=== PATIENT | female | born 1935 | race Caucasian/White ===

== ENCOUNTER 2017-07-22 10:38 | Emergency (ER) | payer MEDICARE, MEDICAID ==
[2017-07-22 12:04] LABS: ABS Basophils 0.1 10^3/ul (0-0.2); ABS Eosinophils 0.2 10^3/ul (0-0.6); ABS Lymphocytes 2.9 10^3/ul (1.0-4.8); ABS Monocytes 0.5 10^3/ul (0-0.8); ABS Neutrophils 3.9 10^3/ul (1.5-7.7); ABS Nucleated RBC 0 10^3/ul; Eosinophil % 2.3 % (0-6); Hematocrit 42 % (35-47); Hemoglobin 13.6 g/dl (12.0-16.0); Lymphocyte % 38.5 % (25-47); Mean Corpuscular HGB Conc 32 g/dl (31-36); Mean Corpuscular Hemoglobin 28 pg (27-31); Mean Corpuscular Volume 86 fL (80-97); Mean Platelet Volume 9 um3 (7.4-10.4); Nucleated Red Blood Cells % 0.1; Platelet Count 375 10^3/ul (150-450); Red Cell Distribution Width 16 % (10.5-15); White Blood Count 7.6 10^3/ul (3.5-10.8)
[2017-07-22 12:22] LABS: EGFR Non-African American 59.8 (>60)
[2017-07-22] MEDS ORDERED: LORazepam INJ* 2 MG/ML 1 ML VIAL IV ONE (12:28)
[2017-07-22] MEDS ORDERED: Ketorolac INJ* 30 MG/ML 1 ML VIAL IV ONE (12:28)
[2017-07-22 12:29] LABS: Urine Appearance Cloudy; Urine Blood 3+ (Negative); Urine Color Yellow; Urine Ketones Negative (Negative); Urine Protein 1+(30 mg/dL) (Negative); Urine Specific Gravity 1.018 (1.010-1.030); Urine Urobilinogen Negative (Negative)
--- NOTE | 2017-07-22 13:23 | RAD ---
Indication: Left flank pain. CT of the abdomen and pelvis was performed without oral or IV contrast administration. Coronal and sagittal reconstructed images were obtained. Lung bases demonstrate no pleural fluid, nodules or masses. Heart is of normal size without evidence of pericardial effusion. Liver is normal in size. No focal lesions or intrahepatic ductal dilatation is noted. The patient status post cholecystectomy. Pancreas demonstrates no mass or pancreatic ductal dilatation. Spleen is normal in size. No adrenal lesions are noted. The kidneys demonstrates no hydronephrosis in either kidney although there is calculi in the upper pole of the left kidney. There is fullness of left renal pelvis and the possibility of UPJ obstruction of the left kidney should be considered. Calculi in the left kidney measures up to 9.6 mm. Large left renal cyst measuring up to 7 cm is noted. Atherosclerotic aorta is noted. No dilated loops of bowel are noted. A large duodenal diverticulum is noted. No retroperitoneal adenopathy is noted. Diverticulosis without definite evidence of diverticulitis is noted. IMPRESSION: Large left renal cyst. Fullness of the left renal pelvis with no evidence of hydroureter. Left-sided UPJ obstruction should be considered. No definite ureteral calculi is definitively identified. 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
--- NOTE | 2017-07-22 13:28 | RAD ---
Indication: Left flank pain. CT of the lumbar spine was obtained in the axial plane. Sagittal and coronal reconstructed images were obtained. There is compression fracture of the L1 vertebra. Age of this is undetermined. There is progression since previous exam of October 09, 2015 with approximately 50% compression currently. Osteopenia is noted in the remainder of the lumbar spine. No retropulsed fragment is noted. IMPRESSION: 50% compression of L1. It has progressed since previous exam of October 09, 2015.. Diffuse osteopenia is noted.
[2017-07-22 15:05] VITALS: BP 164/67
--- NOTE | 2017-07-22 16:49 | ED ---
C[place] Martin Jennifer, scribed for Skip Ny MD on 07/22/17 at 1210 . GI/ HPI - HPI Summary HPI Summary: The patient is an 81 year old who was sent to the ED by her PCP with left flank pain that has worsened two-three days ago. The patient explains that she broke her back around the same time the flank pain began. She was taking Oxycodone since October 2016 for her back pain, but stopped taking it two-three days ago when her back pain went away. The patient describes that she only has flank pain now that feels similar to her two previous episodes of kidney stones. The patient denies problems with urinating. She reports that movement aggravates the pain. - History of Current Complaint Chief Complaint: EDFlankPain Time Seen by Provider: 07/22/17 12:02 Stated Complaint: POSSIBLE KINDEY STONES Hx Obtained From: Patient Onset/Duration: Started Days Ago - 2-3 days, Still Present Timing: Constant Severity: Moderate Current Severity: Moderate Pain Intensity: 4 Location of Pain: Flank - Left Associated Signs and Symptoms: Positive: Other: - Back pain. DENIES: problems with urinating Aggravating Factor(s): Movement Alleviating Factor(s): Rest - Allergy/Home Medications Allergies/Adverse Reactions: Allergies Allergy/AdvReac Type Severity Reaction Status Date / Time MS Morphine [Morphine] Allergy Nausea Verified 07/22/17 12:42 PMH/Surg Hx/FS Hx/Imm Hx Endocrine/Hematology History: Reports: Hx Anticoagulant Therapy, Hx Diabetes - borderline, Hx Anemia - as child Denies: Hx Systemic Lupus Erythematosus, Hx Thyroid Disease Cardiovascular History: Reports: Hx Atrial Fibrillation - on prodaxa, Hx Hypercholesterolemia, Hx Hypertension, Hx Peripheral Vascular Disease, Other Cardiovascular Problems/Disorders - hx AFIB Denies: Hx Pacemaker/ICD Respiratory History: Denies: Hx Asthma, Hx Seasonal Allergies, Hx Sleep Apnea GI History: Reports: Hx Gall Bladder Disease - choleycystectomy Denies: Hx Diverticulosis, Hx Gastroesophageal Reflux Disease, Hx Hiatal Hernia, Hx Irritable Bowel, Hx Ulcer History: Reports: Hx Kidney Stones, Other Problems/Disorders - urinary urgency Musculoskeletal History: Reports: Hx Arthritis Sensory History: Reports: Hx Cataracts - removed approx 2005, Hx Contacts or Glasses, Hx Glaucoma, Hx Vision Problem, 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 hysterectomy. appendenctomy. choleycystectomy. cataracts Hx Anesthesia Reactions: No Infectious Disease History: No Infectious Disease History: Denies: Traveled Outside the [place] in Last 30 Days - Family History Known Family History: Positive: Diabetes - Social History Alcohol Use: None Hx Substance Use: No Substance Use Type: Reports: None Hx Tobacco Use: No Smoking Status (MU): Never Smoked Tobacco Review of Systems Negative: Fever Positive: flank pain Positive: Other - Back pain All Other Systems Reviewed And Are Negative: Yes Physical Exam - Summary Physical Exam Summary: Appearance: The patient is well-nourished in no acute distress and in no acute pain. Skin: The skin is warm and dry and skin color reflects adequate perfusion. HEENT: ~The head is normocephalic and atraumatic. The pupils are equal and reactive. The conjunctivae are clear and without drainage. ~Nares are patent and without drainage. ~Mouth reveals moist mucous membranes and the throat is without erythema and exudate. ~The external ears are intact. The ear canals are patent and without drainage. The tympanic membranes are intact. Neck: the neck is supple with full range of motion and non-tender. There are no carotid bruits. ~There is no neck vein distension. Respiratory: Chest is non-tender. ~Lungs are clear to auscultation and breath sounds are symmetrical and equal. Cardiovascular: Heart is regular rate and rhythm. ~There is no murmur or rub auscultated. ~~There is no peripheral edema and pulses are symmetrical and equal. Abdomen: There is very slight CVA tenderness on the left. ~There are normal bowel sounds heard in all four quadrants and there is no organomegaly palpated. Musculoskeletal: There is tenderness in the mid-back. ~Extremities are non- tender with full range of motion. ~There is good capillary refill. ~There is no peripheral edema or calf tenderness elicited. Neurological: Patient is alert and oriented to person, place and time. Positive straight let raise on both sides. ~The patient has symmetrical motor strength in all four extremities. ~Cranial nerves are grossly intact. Deep tendon reflexes are symmetrical and equal in all four extremities. Psychiatric: The patient has an appropriate affect and does not exhibit any anxiety or depression. Triage Information Reviewed: Yes Vital Signs On Initial Exam: Initial Vitals Temp Pulse Resp BP Pulse Ox 97.9 F 74 19 136/85 100 07/22/17 10:45 07/22/17 10:45 07/22/17 10:45 07/22/17 10:45 07/22/17 10:45 Vital Signs Reviewed: Yes Diagnostics - Vital Signs Vital Signs Temp Pulse Resp BP Pulse Ox 07/22/17 10:45 97.9 F 74 19 136/85 100 - Laboratory Lab Results: Lab Results 07/22/17 07/22/17 07/22/17 Range/Units 11:40 11:40 11:40 WBC 7.6 (3.5-10.8) 10^3/ul RBC 4.90 (4.0-5.4) 10^6/ul Hgb 13.6 (12.0-16.0) g/dl Hct 42 (35-47) % MCV 86 (80-97) fL MCH 28 (27-31) pg MCHC 32 (31-36) g/dl RDW 16 H (10.5-15) % Plt Count 375 (150-450) 10^3/ul MPV 9 (7.4-10.4) um3 Neut % (Auto) 51.9 (38-83) % Lymph % (Auto) 38.5 (25-47) % [place] % (Auto) 6.0 (1-9) % Eos % (Auto) 2.3 (0-6) % Baso % (Auto) 1.3 (0-2) % Absolute Neuts (auto) 3.9 (1.5-7.7) 10^3/ul Absolute Lymphs (auto) 2.9 (1.0-4.8) 10^3/ul Absolute Monos (auto) 0.5 (0-0.8) 10^3/ul Absolute Eos (auto) 0.2 (0-0.6) 10^3/ul Absolute Basos (auto) 0.1 (0-0.2) 10^3/ul Absolute Nucleated RBC 0 10^3/ul Nucleated RBC % 0.1 Sodium 137 (133-145) mmol/L Potassium TNP Chloride 104 (101-111) mmol/L Carbon Dioxide 27 (22-32) mmol/L Anion Gap 6 (2-11) mmol/L BUN 17 (6-24) mg/dL Creatinine 0.90 (0.51-0.95) mg/dL Est GFR ( Amer) 76.9 (>60) Est GFR (Non-Af Amer) 59.8 (>60) BUN/Creatinine Ratio 18.9 (8-20) Glucose 102 H (70-100) mg/dL Lactic Acid 1.6 (0.5-2.0) mmol/L Calcium 9.6 (8.6-10.3) mg/dL Total Bilirubin 0.40 (0.2-1.0) mg/dL AST TNP ALT 16 (7-52) U/L Alkaline Phosphatase 83 (34-104) U/L C-Reactive Protein 1.48 (< 5.00) mg/L Total Protein 7.2 (6.4-8.9) g/dL Albumin 3.8 (3.2-5.2) g/dL Globulin 3.4 (2-4) g/dL Albumin/Globulin Ratio 1.1 (1-3) Lipase 36 (11.0-82.0) U/L Urine Color Urine Appearance Urine pH (5-9) Ur Specific [place] (1.010-1.030) Urine Protein (Negative) Urine Ketones (Negative) Urine Blood (Negative) Urine Nitrate (Negative) Urine Bilirubin (Negative) Urine Urobilinogen (Negative) Ur Leukocyte Esterase (Negative) Urine WBC (Auto) (Absent) Urine RBC (Auto) (Absent) Ur Squamous Epith Cells (Absent) Calcium Oxalate Crystal (Absent) Urine Bacteria (Absent) Urine Glucose (Negative) 07/22/17 Range/Units 12:03 WBC (3.5-10.8) 10^3/ul RBC (4.0-5.4) 10^6/ul Hgb (12.0-16.0) g/dl Hct (35-47) % MCV (80-97) fL MCH (27-31) pg MCHC (31-36) g/dl RDW (10.5-15) % Plt Count (150-450) 10^3/ul MPV (7.4-10.4) um3 Neut % (Auto) (38-83) % Lymph % (Auto) (25-47) % [place] % (Auto) (1-9) % Eos % (Auto) (0-6) % Baso % (Auto) (0-2) % Absolute Neuts (auto) (1.5-7.7) 10^3/ul Absolute Lymphs (auto) (1.0-4.8) 10^3/ul Absolute Monos (auto) (0-0.8) 10^3/ul Absolute Eos (auto) (0-0.6) 10^3/ul Absolute Basos (auto) (0-0.2) 10^3/ul Absolute Nucleated RBC 10^3/ul Nucleated RBC % Sodium (133-145) mmol/L Potassium Chloride (101-111) mmol/L Carbon Dioxide (22-32) mmol/L Anion Gap (2-11) mmol/L BUN (6-24) mg/dL Creatinine (0.51-0.95) mg/dL Est GFR ( Amer) (>60) Est GFR (Non-Af Amer) (>60) BUN/Creatinine Ratio (8-20) Glucose (70-100) mg/dL Lactic Acid (0.5-2.0) mmol/L Calcium (8.6-10.3) mg/dL Total Bilirubin (0.2-1.0) mg/dL AST ALT (7-52) U/L Alkaline Phosphatase (34-104) U/L C-Reactive Protein (< 5.00) mg/L Total Protein (6.4-8.9) g/dL Albumin (3.2-5.2) g/dL Globulin (2-4) g/dL Albumin/Globulin Ratio (1-3) Lipase (11.0-82.0) U/L Urine Color Yellow Urine Appearance Cloudy Urine pH 5.0 (5-9) Ur Specific [place] 1.018 (1.010-1.030) Urine Protein 1+(30 mg/dl) H (Negative) Urine Ketones Negative (Negative) Urine Blood 3+ H (Negative) Urine Nitrate Negative (Negative) Urine Bilirubin Negative (Negative) Urine Urobilinogen Negative (Negative) Ur Leukocyte Esterase 1+ H (Negative) Urine WBC (Auto) 1+(6-10/hpf) H (Absent) Urine RBC (Auto) 3+(>10/hpf) H (Absent) Ur Squamous Epith Cells Present H (Absent) Calcium Oxalate Crystal Present H (Absent) Urine Bacteria Absent (Absent) Urine Glucose Negative (Negative) Result Diagrams: 07/22/17 11:40 07/22/17 11:40 Lab Statement: Any lab studies that have been ordered have been reviewed, and results considered in the medical decision making process. - CT CT Abd/Pel CT Interpretation: Positive (See Comments) - Large left renal cyst. Fullness of the left renal pelvis with no evidence of hydroureter. Left-sided UPJ obstruction should be considered. No definite ureteral calculi is definitively identified. 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 Dr. Ny has reviewed this report. CT Interpretation Completed By: Radiologist CT L-Spine CT Interpretation: Positive (See Comments) - 50% compression of L1. It has progressed since previous exam of October 09, 2015.. Diffuse osteopenia is noted. Dr. Ny has reviewed this report. CT Interpretation Completed By: Radiologist GIGU Course/Dx - Course Course Of Treatment: Ms. Bradford presented with the concern that she had another kidney stone. She has left flank pain that she isn't able to say when it started as she has a compression fracture in her back and has been taking narcotics for the last 8 months or so for. No stone was found here but her compression fracture of L1 was noted to be worse than before and this is likely the cause of her discomfort. - Diagnoses Provider Diagnoses: Lumbar radiculopathy Discharge - Discharge Plan Condition: Stable Disposition: HOME Patient Education Materials: Lumbar Radiculopathy (ED) Referrals: Fazal Ramsey DO [Doctor of Osteopathy] - 3 Days Additional Instructions: Follow up with Dr. Ramsey, medical pain production support consultant, in three days. Return to the emergency department for any new or worsening symptoms. The documentation as recorded by the Cleveland polanco Jennifer accurately reflects the service I personally performed and the decisions made by , Skip Ny MD.
== END 2017-07-22 15:04 | disposition home or self-care (01) ==
LOC: ED 10:38
DX: M54.16 Radiculopathy, lumbar region (principal); R10.84 Generalized abdominal pain; M54.9 Dorsalgia, unspecified; Z79.01 Long term (current) use of anticoagulants; Z86.79 Personal history of other diseases of the circulatory system
CPT/HCPCS: 36415; 72131; 74176; 80053; 81003; 81015; 83605; 83690; 85025; 86140; 87077; 87086; 87186; 99282; J1885; J2060

== ENCOUNTER 2019-01-14 08:49 | Observation (INO) | payer MEDICARE, MEDICAID ==
--- OUTSIDE RECORDS SUMMARY | 2019-01-14 09:12 | XMS REPORT | Continuity of Care Document ---
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 [facility] [address] Expires: 2018 Policy Number: [id number] Medicare [place] June M Slater PayID: [id number] [address] [facility] [address] Policy Number: [id number] Medicaid [place] June M Slater PayID: [id number] [address] [place] [id number] Family History Date Family Member(s) Observation Comments Father due to NH () Mother due to Natural Causes () Children 10 Siblings 3 Grandchildren Several Social History Type Date Description Comments Sex Unknown Marital Status Occupation Retired Work Status Not Currently Working Tobacco Use Start: Unknown Never Smoked Cigarettes Smoking Status Reviewed: 12/21/18 Never Smoked Cigarettes ETOH Use Denies alcohol use Tobacco Use Start: Unknown Patient has never smoked Allergies, Adverse Reactions, Alerts Active Allergies Reaction Severity Comments Date Morphine cough 07/07/2016 Vicodin forgetful 07/07/2016 Manfred Inhibitors cough 07/07/2016 Medications Active Medications SIG Qnty Indications Ordering Date Provider Oxycodone HCL si by mouth 75tabs Fazal Ramsey, 09/08/2017 5mg Tablets every 8 to 12 DO, MPH hours as directed chronic pain patient Calcium 1 by mouth daily Unknown Carbonate-Vitamin D3 [id number] Tablets Amiodarone HCL 1 by mouth daily Unknown 200mg Tablets Preservision Areds 1 by mouth twice Unknown daily Capsules Pradaxa Unknown 150mg Capsules Fludrocortisone Acetate Unknown 0.1mg Tablets Northera Up To 4 By Mouth Unknown 100mg Capsules Three Times Daily History Medications Lidocaine apply 1-2 grams to 240gm Fazal Ramsey, 09/08/2017 - 5% Cream the cervical spine DO, MPH 05/23/2018 three to four times a day Midodrine HCL bid Unknown - 10mg Tablets 09/22/2018 Milk Of Magnesia as needed for Unknown - 7.75% constipation 11/10/2017 Suspension Aspirin Ec 1 by mouth daily Unknown - 325mg Tablets DR 11/10/2017 Cyclobenzaprine HCL si by mouth Unknown - 5mg every evening as 11/10/2017 Tablets directed as directed chronic pain. Duloxetine HCL 1 by mouth every day Unknown - 60mg Caps DR 09/08/2017 Part Duloxetine HCL 1 cap by mouth every Unknown - 30mg Caps DR day 09/08/2017 Part Latanoprost 1 drop in each eye Unknown - 0.005% Solution at bedtime 11/10/2017 Pradaxa 1 by mouth twice Unknown - 150mg Capsules daily 12/10/2017 Fluoxetine HCL (PMDD) 1 by mouth every day Unknown - 20mg 11/10/2017 Capsules Acetaminophen 2 tab by mouth three Unknown - 500mg Tablets times a day 11/10/2017 Oxycodone-Acetaminophen si by mouth Unknown - every 4-6 hours as 10/07/2016 5-325mg Tablets directed chronic pain patient Duloxetine HCL 1 cap by mouth every Unknown - 30mg Caps DR morning as directed 07/07/2016 Part chronic pain patient. Mapap 2 every 8 hours Unknown - 500mg Tablets 07/07/2016 Vital Signs Date Vital Result Comment 12/21/2018 10:30am BP Systolic 130 mmHg BP Diastolic 78 mmHg Heart Rate 76 /min Respiratory Rate 20 /min Height 66 inches 5'6" Pain Level 8 Pain at this time. Pain Level With Medicine 7 on average with meds Pain Level Without Medicine 9 without meds 11/22/2018 10:11am BP Systolic 126 mmHg BP Diastolic 76 mmHg Heart Rate 78 /min Respiratory Rate 20 /min Height 66 inches 5'6" Weight 201.00 lb pt in wheelchair Pain Level 2 Pain at this time. Pain Level With Medicine 1 on average with meds Pain Level Without Medicine 9 without meds BMI (Body Mass Index) 32.4 kg/m2 10/24/2018 9:54am BP Systolic 132 mmHg BP Diastolic 82 mmHg Heart Rate 84 /min Respiratory Rate 20 /min Height 66 inches 5'6" Weight 201.00 lb Pain Level 6 Pain at this time. Pain Level With Medicine 5 on average with meds Pain Level Without Medicine 9 without meds BMI (Body Mass Index) 32.4 kg/m2 09/22/2018 10:05am BP Systolic 124 mmHg BP Diastolic 70 mmHg Heart Rate 72 /min Respiratory Rate 20 /min Height 66 inches 5'6" Weight 198.00 lb Pain Level 2 Pain at this time. Pain Level With Medicine 2 on average with meds Pain Level Without Medicine 8 03/16 without meds BMI (Body Mass Index) 32.0 kg/m2 08/23/2018 2:08pm BP Systolic 128 mmHg BP Diastolic 84 mmHg Heart Rate 86 /min Respiratory Rate 20 /min Height 66 inches 5'6" Weight 202.00 lb Pain Level 2 Pain at this time. Pain Level With Medicine 2 on average with meds Pain Level Without Medicine 10 03/16 without meds BMI (Body Mass Index) 32.6 kg/m2 07/25/2018 10:24am BP Systolic 122 mmHg BP Diastolic 74 mmHg Heart Rate 76 /min Respiratory Rate 20 /min Height 66 inches 5'6" Weight 202.00 lb Pain Level 6 Pain at this time. Pain Level With Medicine 5 on average with meds Pain Level Without Medicine 10 03/16 without meds BMI (Body Mass Index) 32.6 kg/m2 06/22/2018 10:09am BP Systolic 128 mmHg BP Diastolic 80 mmHg Heart Rate 74 /min Respiratory Rate 20 /min Height 66 inches 5'6" Weight 198.00 lb Pain Level 2 Pain at this time. Pain Level With Medicine 2 on average with meds Pain Level Without Medicine 10 03/16 without meds BMI (Body Mass Index) 32.0 kg/m2 05/23/2018 11:10am BP Systolic 128 mmHg BP Diastolic 84 mmHg Heart Rate 76 /min Respiratory Rate 20 /min Height 66 inches 5'6" Weight 198.00 lb Pain Level 8 Pain at this time. Pain Level With Medicine 8 on average with meds Pain Level Without Medicine 10 03/16 without meds BMI (Body Mass Index) 32.0 kg/m2 04/26/2018 10:52am BP Systolic 120 mmHg BP Diastolic 70 mmHg Heart Rate 72 /min Respiratory Rate 20 /min Height 66 inches 5'6" Weight 196.00 lb Pain Level 5 Pain at this time. Pain Level With Medicine 4 on average with meds Pain Level Without Medicine 03/16 without meds BMI (Body Mass Index) 31.6 kg/m2 03/23/2018 10:51am BP Systolic 126 mmHg BP Diastolic 80 mmHg Heart Rate 80 /min Respiratory Rate 20 /min Height 66 inches 5'6" Weight 192.00 lb Pain Level 3 Pain at this time. Pain Level With Medicine 2 on average with meds Pain Level Without Medicine 03/16 without meds BMI (Body Mass Index) 31.0 kg/m2 02/24/2018 9:22am BP Systolic 128 mmHg BP Diastolic 80 mmHg Heart Rate 82 /min Respiratory Rate 20 /min Height 66 inches 5'6" Weight 188.00 lb Pain Level 4 Pain at this time. Pain Level With Medicine 2 on average with meds Pain Level Without Medicine 03/16 without meds BMI (Body Mass Index) 30.3 kg/m2 01/12/2018 3:29pm BP Systolic 128 mmHg BP Diastolic 76 mmHg Heart Rate 74 /min Respiratory Rate 20 /min Height 66 inches 5'6" Weight 185.00 lb Pain Level 3 Pain at this time. Pain Level With Medicine 3 on average with meds Pain Level Without Medicine 03/16 without meds BMI (Body Mass Index) 29.9 kg/m2 12/20/2017 3:15pm BP Systolic 122 mmHg BP Diastolic 70 mmHg Heart Rate 74 /min Respiratory Rate 20 /min Height 66 inches 5'6" Weight 185.00 lb Pain Level 6 Pain at this time. Pain Level With Medicine 5 on average with meds Pain Level Without Medicine 03/16 without meds BMI (Body Mass Index) 29.9 kg/m2 12/10/2017 10:28am BP Systolic 122 mmHg BP Diastolic 74 mmHg Heart Rate 76 /min Respiratory Rate 20 /min Height 66 inches 5'6" Weight 184.00 lb Pain Level 8 Pain at this time. Pain Level With Medicine 7 on average with meds Pain Level Without Medicine 03/16 without meds BMI (Body Mass Index) 29.7 kg/m2 11/09/2017 9:12am BP Systolic 120 mmHg BP Diastolic 74 mmHg Heart Rate 76 /min Respiratory Rate 20 /min Height 66 inches 5'6" Weight 193.00 lb Pain Level 7 Pain at this time. Pain Level With Medicine 5 on average with meds Pain Level Without Medicine 03/16 without meds BMI (Body Mass Index) 31.1 kg/m2 10/07/2017 11:12am BP Systolic 128 mmHg BP Diastolic 78 mmHg Heart Rate 74 /min Respiratory Rate 20 /min Height 66 inches 5'6" Weight 193.00 lb Pain Level 3 Pain at this time. Pain Level With Medicine 2 on average with meds Pain Level Without Medicine 03/16 without meds BMI (Body Mass Index) 31.1 kg/m2 09/08/2017 1:55pm BP Systolic 126 mmHg BP Diastolic 84 mmHg Heart Rate 80 /min Respiratory Rate 20 /min Height 66 inches 5'6" Weight 192.00 lb Pain Level 9 Pain at this time. Pain Level Without Medicine 03/16 without meds BMI (Body Mass Index) 31.0 kg/m2 05/11/2017 10:23am BP Systolic 128 mmHg BP Diastolic 76 mmHg Heart Rate 78 /min Respiratory Rate 20 /min Height 66 inches 5'6" Weight 192.00 lb Pain Level 1 Pain at this time. Pain Level With Medicine 1 on average with meds Pain Level Without Medicine 03/16 without meds BMI (Body Mass Index) 31.0 kg/m2 04/07/2017 11:50am BP Systolic 120 mmHg BP Diastolic 70 mmHg Heart Rate 72 /min Respiratory Rate 20 /min Height 66 inches 5'6" Weight 190.00 lb pt in wheelchiar Pain Level 6 Pain at this time. Pain Level With Medicine 5 on average with meds Pain Level Without Medicine 03/16 without meds BMI (Body Mass Index) 30.7 kg/m2 03/12/2017 11:04am BP Systolic 122 mmHg BP Diastolic 74 mmHg Heart Rate 76 /min Respiratory Rate 20 /min Height 66 inches 5'6" Pain Level 4 Pain at this time. Pain Level With Medicine 4 on average with meds Pain Level Without Medicine 10 03/16 without meds 02/10/2017 10:00am BP Systolic 120 mmHg BP Diastolic 78 mmHg Heart Rate 76 /min Respiratory Rate 20 /min Height 66 inches 5'6" Weight 186.00 lb Pain Level 4 Pain at this time. Pain Level With Medicine 3 on average with meds Pain Level Without Medicine 03/16 without meds BMI (Body Mass Index) 30.0 kg/m2 01/11/2017 2:50pm BP Systolic 128 mmHg BP Diastolic 76 mmHg Heart Rate 74 /min Respiratory Rate 20 /min Height 66 inches 5'6" Weight 185.00 lb Pain Level 4 Pain at this time. Pain Level With Medicine 4 on average with meds Pain Level Without Medicine 03/16 without meds BMI (Body Mass Index) 29.9 kg/m2 11/30/2016 10:26am BP Systolic 122 mmHg BP Diastolic 70 mmHg Heart Rate 74 /min Respiratory Rate 20 /min Height 66 inches 5'6" Weight 185.00 lb Pain Level 8 Pain at this time. Pain Level With Medicine 7 on average with meds Pain Level Without Medicine 03/16 without meds BMI (Body Mass Index) 29.9 kg/m2 11/06/2016 10:25am BP Systolic 122 mmHg BP Diastolic 74 mmHg Heart Rate 76 /min Respiratory Rate 18 /min Height 66 inches 5'6" Weight 185.00 lb Pain Level 8 Pain at this time. Pain Level With Medicine 7 on average with meds Pain Level Without Medicine 03/16 without meds BMI (Body Mass Index) 29.9 kg/m2 10/07/2016 10:02am BP Systolic 130 mmHg BP Diastolic 78 mmHg Heart Rate 74 /min Respiratory Rate 18 /min Height 66 inches 5'6" Weight 186.00 lb Pain Level 9 Pain at this time. Pain Level With Medicine 6 on average with meds Pain Level Without Medicine 10 03/16 without meds BMI (Body Mass Index) 30.0 kg/m2 07/21/2016 11:23am BP Systolic 132 mmHg BP Diastolic 84 mmHg Heart Rate 94 /min Respiratory Rate 18 /min Height 66 inches 5'6" Weight 210.00 lb O2 % BldC Oximetry 96 % Pain Level 8 Pain at this time. Pain Level With Medicine 8 Pain Level Without Medicine 10 03/16 without meds BMI (Body Mass Index) 33.9 kg/m2 07/07/2016 9:41am BP Systolic 118 mmHg BP Diastolic 80 mmHg Heart Rate 68 /min Respiratory Rate 18 /min Height 66 inches 5'6" Weight 200.00 lb Pain Level 9 Pain at this time. Pain Level Without Medicine 10 03/16 without meds BMI (Body Mass Index) 32.3 kg/m2 Procedures Date Code Description Status 07/25/2018 70727 Brief Emotional/Behav Assessment W/ Scoring Doc Per Completed Standard Inst 05/23/2018 23931 Therapeutic, Prophylactic Or Diagnostic Injection Subq/Im Completed 07/21/2016 65461 Test Autonomic Nervous System, Sudomotor Completed Encounters Type Date Location Provider Dx Diagnosis Office Visit 11/22/2018 Main Office as Of Fazal Ramsey DO [id number] Other chronic pain 10:00a 07/08/13 MPH M54.5 Low back pain M54.2 Cervicalgia Z79.891 manager long term care (current) use of opiate analgesic Office Visit 10/24/2018 10:00a Main Office as Fazal Ramsey G89.29 Other chronic Of 07/08/13 DO, MPH pain M54.2 Cervicalgia M54.5 Low back pain Z79.891 intermediate (current) use of opiate analgesic Office Visit 09/22/2018 10:00a Main Office as Fazal Ramsey G89.29 Other chronic Of 07/08/13 DO, MPH pain M54.2 Cervicalgia M54.5 Low back pain Z79.891 intermediate (current) use of opiate analgesic Office Visit 08/23/2018 2:00p Main Office as Fazal Ramsey G89.29 Other chronic Of 07/08/13 DO, MPH pain M54.5 Low back pain M54.2 Cervicalgia Z79.891 intermediate (current) use of opiate analgesic Office Visit 07/25/2018 10:15a Main Office as Fazal Ramsey G89.29 Other chronic Of 07/08/13 DO, MPH pain M54.5 Low back pain M54.2 Cervicalgia Z13.31 Encounter for screening for depression Z79.891 manager long term care (current) use of opiate analgesic Office Visit 06/22/2018 9:45a Main Office as Fazal Ramsey, G89.29 Other chronic Of 07/08/13 DO, MPH pain M54.5 Low back pain M54.2 Cervicalgia M25.512 Pain in left shoulder I48.2 Chronic atrial fibrillation F33.8 Other recurrent depressive disorders Z79.891 intermediate (current) use of opiate analgesic Office Visit 05/23/2018 11:45a Main Office as Fazal Ramsey G89.29 Other chronic Of 07/08/13 DO, MPH pain M25.512 Pain in left shoulder M54.5 Low back pain M54.2 Cervicalgia Z79.891 manager long term care (current) use of opiate analgesic R53.83 Other fatigue Office Visit 04/26/2018 11:00a Main Office as Fazal Ramsey G89.29 Other chronic Of 07/08/13 DO, MPH pain M54.2 Cervicalgia M25.512 Pain in left shoulder M54.5 Low back pain Z79.891 manager long term care (current) use of opiate analgesic Office Visit 03/23/2018 11:00a Main Office as Fazal Ramsey G89.29 Other chronic Of 07/08/13 DO, MPH pain M54.5 Low back pain M54.2 Cervicalgia M25.512 Pain in left shoulder Z79.891 intermediate (current) use of opiate analgesic Office Visit 02/24/2018 9:15a Main Office as Fazal Ramsey G89.29 Other chronic Of 07/08/13 DO, MPH pain M54.5 Low back pain M79.604 Pain in right leg M54.2 Cervicalgia M25.512 Pain in left shoulder Z79.891 manager long term care (current) use of opiate analgesic Office Visit 01/12/2018 3:15p Main Office as Fazal Ramsey G89.29 Other chronic Of 07/08/13 DO, MPH pain M54.2 Cervicalgia M79.604 Pain in right leg M54.5 Low back pain M25.512 Pain in left shoulder Z71.89 Other specified counseling Z79.891 intermediate (current) use of opiate analgesic Office Visit 12/20/2017 3:15p Main Office as Fazal Ramsey G89.29 Other chronic Of 07/08/13 DO, MPH pain M54.5 Low back pain M54.2 Cervicalgia M25.511 Pain in right shoulder M25.512 Pain in left shoulder M79.605 Pain in left leg M79.604 Pain in right leg Z71.89 Other specified counseling Z79.891 intermediate (current) use of opiate analgesic Office Visit 12/10/2017 10:15a Main Office as Fazal Ramsey G89.29 Other chronic Of 07/08/13 DO, MPH pain M54.5 Low back pain M54.2 Cervicalgia M25.512 Pain in left shoulder M25.511 Pain in right shoulder Z71.89 Other specified counseling Z79.891 intermediate (current) use of opiate analgesic Office Visit 11/09/2017 9:15a Main Office as Fazal Ramsey G89.29 Other chronic Of 07/08/13 DO, MPH pain M54.5 Low back pain M54.2 Cervicalgia M25.512 Pain in left shoulder M25.511 Pain in right shoulder Z79.891 manager long term care (current) use of opiate analgesic Office Visit 10/07/2017 11:15a Main Office as Fazal Ramsey G89.29 Other chronic Of 07/08/13 DO, MPH pain M54.5 Low back pain M54.2 Cervicalgia Z79.891 intermediate (current) use of opiate analgesic Office Visit 09/08/2017 1:45p Main Office as Fazal Ramsey G89.29 Other chronic Of 07/08/13 DO, MPH pain M54.5 Low back pain M54.2 Cervicalgia M25.512 Pain in left shoulder M25.511 Pain in right shoulder Z79.891 intermediate (current) use of opiate analgesic Z13.89 Encounter for screening for other disorder Office Visit 05/11/2017 10:30a Main Office as Fazal Ramsey G89.29 Other chronic Of 07/08/13 DO, MPH pain M54.2 Cervicalgia M54.5 Low back pain M25.512 Pain in left shoulder M25.511 Pain in right shoulder Z79.891 manager long term care (current) use of opiate analgesic Office Visit 04/07/2017 11:15a Main Office as Fazal Ramsey G89.29 Other chronic Of 07/08/13 DO, MPH pain M54.5 Low back pain M54.2 Cervicalgia M25.511 Pain in right shoulder M25.512 Pain in left shoulder M79.604 Pain in right leg M79.605 Pain in left leg Z79.891 manager long term care (current) use of opiate analgesic Office Visit 03/12/2017 11:00a Main Office as Fazal Ramsey G89.29 Other chronic Of 07/08/13 DO, MPH pain M54.5 Low back pain M54.2 Cervicalgia M25.512 Pain in left shoulder M25.511 Pain in right shoulder M79.605 Pain in left leg M79.604 Pain in right leg Z79.891 manager long term care (current) use of opiate analgesic Office Visit 02/10/2017 10:00a Main Office as Fazal Ramsey G89.29 Other chronic Of 07/08/13 DO, MPH pain M54.5 Low back pain M25.511 Pain in right shoulder M25.512 Pain in left shoulder M54.2 Cervicalgia M79.605 Pain in left leg M79.604 Pain in right leg Z79.891 intermediate (current) use of opiate analgesic Office Visit 01/11/2017 2:45p Main Office as Fazal Ramsey G89.29 Other chronic Of 07/08/13 DO, MPH pain M54.2 Cervicalgia M54.5 Low back pain M25.512 Pain in left shoulder M25.511 Pain in right shoulder M79.604 Pain in right leg M79.605 Pain in left leg Z79.891 manager long term care (current) use of opiate analgesic Office Visit 11/30/2016 10:15a Main Office as Fazal Ramsey G89.29 Other chronic Of 07/08/13 DO, MPH pain M54.5 Low back pain M54.2 Cervicalgia M25.511 Pain in right shoulder M25.512 Pain in left shoulder M79.604 Pain in right leg M79.605 Pain in left leg Z79.891 intermediate (current) use of opiate analgesic Office Visit 11/06/2016 10:30a Main Office as Fazal Ramsey G89.29 Other chronic Of 07/08/13 DO, MPH pain M54.5 Low back pain M54.2 Cervicalgia M25.511 Pain in right shoulder M25.512 Pain in left shoulder M79.604 Pain in right leg M79.605 Pain in left leg Z79.891 intermediate (current) use of opiate analgesic Office Visit 10/07/2016 9:45a Main Office as Fazal Ramsey G89.29 Other chronic Of 07/08/13 DO, MPH pain M54.5 Low back pain M54.2 Cervicalgia M25.511 Pain in right shoulder M25.512 Pain in left shoulder M79.604 Pain in right leg M79.605 Pain in left leg I48.2 Chronic atrial fibrillation Z71.89 Other specified counseling Z79.891 manager long term care (current) use of opiate analgesic Office Visit 07/21/2016 10:30a Main Office as Fazal Ramsey G89.29 Other chronic Of 07/08/13 DO, MPH pain M54.5 Low back pain M54.2 Cervicalgia M25.511 Pain in right shoulder M25.512 Pain in left shoulder M79.604 Pain in right leg M79.605 Pain in left leg I48.2 Chronic atrial fibrillation F33.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 Office Visit 07/07/2016 9:00a Main Office as Fazal Ramsey G89.29 Other chronic Of 07/08/13 DO, MPH pain M54.5 Low back pain M54.2 Cervicalgia M25.511 Pain in right shoulder M25.512 Pain in left shoulder M79.604 Pain in right leg M79.605 Pain in left leg Z71.3 Dietary counseling and surveillance Z71.89 Other specified counseling I48.2 Chronic atrial fibrillation Z79.891 intermediate (current) use of opiate analgesic F33.8 Other recurrent depressive disorders Plan of Treatment Future Appointment(s):01/20/2019 11:00 am - Fazal Ramsey DO MPH at Main Office as Of 07/08/1406 - Fazal Ramsey DO, MPHG89.29 Other chronic painComments:Chronic. Symptoms and complaints discussed and reviewed today. No significant changes in physical findings. Continue current medical pain management.M54.5 Low back painComments:Chronic. Symptoms and complaints discussed and reviewed today.No changes in physical findings. Patient is stable and comfortable when current medical therapy is rendered.Z79.891 manager long term care ( current) use of opiate analgesicNew Labs:Urine Drug Screen, Ordered: Comments:Urine drug screen sample taken today to monitor opiate use and to monitor use of illicit substances.Will discuss results at next appointment.The following tests were ordered:6 AM, AMPH, DONALDO, TAO, BUP, CARIS, COCM, COT, ETG , FENT, MCSHSG, OPI, OXY, PCP, TAPEN, XTSY, ZOLP. A urine drug test (UDT ) was ordered for this patient and collected on site today. Creatinine has been ordered as well for specimen validity, not for kidney function. Preliminary UDT results are not final and should not be used to determine patient care or plan of treatment. Initially a qualitative immunoassay screen will be done. Any inconsistent or positive findings will be further tested with a more comprehensive quantitative confirmation LCMS study. It is part of the treatment process of prescribing controlled substances and is considered standard of care.AllComments:Continue current medical pain management; injection therapy, osteopathic manipulation, PT / modalities, and consults as needed to manage chronic pain.Non - opioid pain management discussed and optionsdiscussed.Side effects discussed; anticipatory guidance given. Patient clearly understand and agree with all medical treatments and suggestions. All medicines prescribed are adequate and appropriate for this patient's complaint of pain, medical history, physical, and personal goals.Goals of Treatment are to provide adequate and appropriate multidisciplinary medical pain management to increase/ maintain patient's quality of life and functionality while maintaining satisfactory side effect profile andminimizing manager long term care end-organ damage. Importance of regular nutrition throughout the day discussed.Activity as toleratedContinue with PCP
[2019-01-14] MEDS ORDERED: NS 0.9% 1000 ML** 1,000 ML IV ONE (10:02)
[2019-01-14] MEDS ORDERED: fentaNYL* 50 MCG/ML 2 ML VIAL (100 MCG VIAL) IV SLOW PU ONE (10:03)
[2019-01-14] MEDS ORDERED: Ondansetron INJ* 2 MG/ML VIAL IV ONE (10:03)
--- NOTE | 2019-01-14 10:20 | ED ---
GI/ HPI - HPI Summary HPI Summary: The pt is an 83 yr old female presenting to [facility] c/o general weakness and N/V beginning 4 days [employer]. She states that she was vomiting before arriving to the ED and was not able to keep anything in her stomach since last night. She took an OxyContin pill last night but vomited it up and is currently in pain that she rates an 8/10. She is allergic to morphine. She mentions that most of the pain is located in her back and notes that she has several fractured vertebrae. She also reports some abd pain, chills, SOB with exertion, intermittent dizziness, inability to urinate, and feeling like a rock was on her chest but denies any fever, CP, diarrhea, or burning. She has Hx of Afib and cholecystectomy. - History of Current Complaint Chief Complaint: EDWeakness Time Seen by Provider: 01/14/19 09:38 Stated Complaint: GENERAL ILLNESS Hx Obtained From: Patient Onset/Duration: Started Days Ago, Still Present Severity: Severe Current Severity: Severe Pain Intensity: 8 Location of Pain: Diffuse, Other - pos - back pain Associated Signs and Symptoms: Positive: Dizziness - intermittent, Weakness, Nausea, Vomiting, Chills, Abdominal Pain, Other: - pos - back pain, inability to urinate, SOB with exertion, feeling of a "rock" on her chest. neg - burning. Negative: Diarrhea, Fever, Chest Pain - Allergy/Home Medications Allergies/Adverse Reactions: Allergies Allergy/AdvReac Type Severity Reaction Status Date / Time morphine Allergy Nausea Verified 01/14/19 10:23 PMH/Surg Hx/FS Hx/Imm Hx Endocrine/Hematology History: Reports: Hx Anticoagulant Therapy, Hx Diabetes - borderline, Hx Anemia - as child Denies: Hx Systemic Lupus Erythematosus, Hx Thyroid Disease Cardiovascular History: Reports: Hx Atrial Fibrillation - on prodaxa, Hx Hypercholesterolemia, Hx Hypertension, Hx Peripheral Vascular Disease, Other Cardiovascular Problems/Disorders - hx AFIB Denies: Hx Pacemaker/ICD Respiratory History: Denies: Hx Asthma, Hx Seasonal Allergies, Hx Sleep Apnea GI History: Reports: Hx Gall Bladder Disease - choleycystectomy Denies: Hx Diverticulosis, Hx Gastroesophageal Reflux Disease, Hx Hiatal Hernia, Hx Irritable Bowel, Hx Ulcer History: Reports: Hx Kidney Stones, Other Problems/Disorders - urinary urgency Musculoskeletal History: Reports: Hx Arthritis Sensory History: Reports: Hx Cataracts - removed approx 2005, Hx Contacts or Glasses, Hx Glaucoma, Hx Vision Problem, 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 hysterectomy. appendenctomy. choleycystectomy. cataracts Hx Anesthesia Reactions: No Infectious Disease History: No Infectious Disease History: Denies: Traveled Outside the [place] in Last 30 Days - Family History Known Family History: Positive: Unknown, Diabetes - Social History Alcohol Use: None Hx Substance Use: No Substance Use Type: Reports: None Substance Use Comment - Amount & Last Used: oxy Hx Tobacco Use: No Smoking Status (MU): Never Smoked Tobacco Review of Systems Positive: Chills. Negative: Fever Positive: Other - pos - feeling like a "rock" is on chest. Negative: Chest Pain Positive: Shortness Of Breath - with exertion Positive: Abdominal Pain, Vomiting, Nausea. Negative: Diarrhea Positive: other - pos - inability to urinate. Negative: burning Neurological: Other - pos - intermittent dizziness Positive: Weakness All Other Systems Reviewed And Are Negative: Yes Physical Exam - Summary Physical Exam Summary: GENERAL: Patient is a well-developed and nourished female who is lying comfortable in the stretcher. Patient is not in any acute respiratory distress. HEAD AND FACE: Normocephalic EYES: PERRLA, EOMI x 2. EARS: Hearing grossly intact. MOUTH: Oropharynx within normal limits. NECK: Supple, trachea is midline, no adenopathy, no JVD, no carotid bruit. CHEST: Symmetric, no tenderness at palpation LUNGS: Clear to auscultation bilaterally. No wheezing or crackles. CVS: Irregularly irregular rhythm, S1 and S2 present, no murmurs or gallops appreciated. ABDOMEN: Soft, non-tender. Bowel sounds are normal. No abnormal abdominal pulsations. EXTREMITIES: Full ROM in all major joints, no edema, no cyanosis or clubbing. NEURO: Alert and oriented x 3. No acute neurological deficits. Speech is normal and follows commands. SKIN: Dry and warm Triage Information Reviewed: Yes Vital Signs On Initial Exam: Initial Vitals Temp Pulse Resp BP Pulse Ox 97.7 F 101 20 112/67 93 01/14/19 08:51 01/14/19 08:51 01/14/19 08:51 01/14/19 08:51 01/14/19 08:51 Vital Signs Reviewed: Yes Diagnostics - Vital Signs Vital Signs Temp Pulse Resp BP Pulse Ox 01/14/19 10:08 91 01/14/19 09:55 111/65 01/14/19 09:00 102 95 01/14/19 08:55 101 93 01/14/19 08:51 97.7 F 101 20 112/67 93 - Laboratory Result Diagrams: 01/14/19 10:30 01/14/19 10:30 Lab Statement: Any lab studies that have been ordered have been reviewed, and results considered in the medical decision making process. - Radiology CXR Radiology Interpretation Completed By: Radiologist Summary of Radiographic Findings: IMPRESSION: #. Cardiomegaly without evidence for pulmonary edema. #. Potential obstructive lung disease. ED Physician has reviewed this report. - CT CT A/P CT Interpretation Completed By: Radiologist Summary of CT Findings: IMPRESSION: #. Hepatosteatosis. #. Post cholecystectomy. Negative for biliary dilatation. #. LEFT nephrolithiasis as described without hydronephrosis. #. Colonic diverticulosis without evidence for acute diverticulitis. ED Physician has reviewed this report. - EKG 1005 Cardiac Rate: NL - 99 bpm EKG Rhythm: Sinus Rhythm EKG Comparison: No Significant Change Summary of EKG Findings: EKG: Sinus rhythm @ 99. LAD. Prolonged Qt. No significant changes from previous EKG. GIGU Course/Dx - Course Course Of Treatment: The pt is an 83 yr old female presenting to [facility] c/o general weakness and N/V beginning 4 days [employer]. labs reviewed is remarkble for for WBC at 16.5. A CXR reveals: #. Cardiomegaly without evidence for pulmonary edema. #. Potential obstructive lung disease. A CT A/P reveals: #. Hepatosteatosis. #. Post cholecystectomy. Negative for biliary dilatation. #. LEFT nephrolithiasis as described without hydronephrosis. #. Colonic diverticulosis without evidence for acute diverticulitis. Given that UA is positive and patient is actively vomiting she will need to be admitted for IV antibiotics. Case discussed with hospitalist. Mario discussed results with patient. The patient agrees with this plan. - Diagnoses Provider Diagnoses: Pyelonephritis, Nausea & vomiting - Physician Notifications Discussed Care Of Patient With: Jasper Sanchez - pt will be admitted to [facility]. Time Discussed With Above Provider: 12:30 Instructed by Provider To: Admit As Inpatient Discharge - Sign-Out/Discharge Documenting (check all that apply): Patient Departure - Admit Patient Received Moderate/Deep Sedation with Procedure: No - Discharge Plan Condition: Stable Disposition: ADMITTED TO [facility] - Billing Disposition and Condition Condition: STABLE Disposition: Admitted to [facility] - Attestation Statements Document Initiated by Miguel Ángel: Yes Documenting Scribe: Philipp Chandler Provider For Whom Miguel Ángel is Documenting (Include Credential): Tommie Rodriguez MD Scribe Attestation: Philipp Martin, scribed for Tommie Rodriguez MD on 01/14/19 at 1711. Scribe Documentation Reviewed: Yes Provider Attestation: The documentation as recorded by the Philipp polanco accurately reflects the service I personally performed and the decisions made by , Tommie Rodriguez MD Status of Scribvalente Document: Viewed
[2019-01-14 10:35] LABS: Urine Appearance Cloudy; Urine Bacteria Absent (Absent); Urine Bilirubin Negative (Negative); Urine Blood 3+ (Negative); Urine Color Yellow; Urine Glucose Negative (Negative); Urine Ketones Negative (Negative); Urine Nitrite Negative (Negative); Urine Protein 1+(30 mg/dL) (Negative); Urine Red Blood Cell 3+(>10/hpf) (Absent); Urine Specific Gravity 1.012 (1.010-1.030); Urine Squamous Epithelial Cell Present (Absent); Urine Urobilinogen Negative (Negative); Urine White Blood Cell 3+(>20/hpf) (Absent)
[2019-01-14 10:49] LABS: ABS Basophils 0.2 10^3/ul (0-0.2); ABS Lymphocytes 2.6 10^3/ul (1.0-4.8); ABS Neutrophils 12.7 10^3/ul (1.5-7.7); Eosinophil % 0.1 %; Hematocrit 42 % (35-47); Hemoglobin 13.5 g/dL (12.0-16.0); Lymphocyte % 15.8 %; Mean Corpuscular HGB Conc 32 g/dL (31-36); Mean Corpuscular Hemoglobin 27 pg (27-31); Mean Corpuscular Volume 84 fL (80-97); Mean Platelet Volume 8.8 fL (7.4-10.4); Nucleated Red Blood Cells % 0.1; Platelet Count 354 10^3/uL (150-450); Red Blood Count 4.97 10^6 /uL (3.70-4.87); Red Cell Distribution Width 17 % (10-15); White Blood Count 16.5 10^3/uL (3.5-10.8)
[2019-01-14 11:01] LABS: INR 1.28 (0.82-1.09)
[2019-01-14] MEDS ORDERED: cefTRIAXone(*) 1 GM in NS 0.9% 50 ML* 50 ML IVPB ONE (11:03)
[2019-01-14 11:09] LABS: Troponin I 0.01 ng/mL (<0.04)
[2019-01-14 11:10] LABS: Albumin 3.6 g/dL (3.2-5.2); Albumin/Globulin Ratio 1.1 (1-3); BUN/Creatinine Ratio 16.7 (8-20); Calcium 9.2 mg/dL (8.6-10.3); EGFR Non-African American 64.4 (>60); Globulin 3.3 g/dL (2-4); Magnesium 1.7 mg/dL (1.9-2.7); Potassium 3.9 mmol/L (3.5-5.0); Total Bilirubin 0.6 mg/dL (0.2-1.0); Total Protein 6.9 g/dL (6.4-8.9)
[2019-01-14] MEDS ORDERED: Iodixanol* (CONTRAST) 320 MG/ML 100 ML SDV IV ONE (11:14)
[2019-01-14 11:21] LABS: T4, Total 11.76 mcg/dL (6.09-12.23)
[2019-01-14 11:27] LABS: TSH (Thyroid Stimulating Horm) 0.27 mcIU/mL (0.34-5.60)
[2019-01-14] MEDS ORDERED: oxyCODONE/Acetamin 5/325 MG* TAB PO PRN (13:22)
--- NOTE | 2019-01-14 13:31 | ADMNOTE ---
Subjective Date of Service: 01/14/19 Interval History: ADMISSION HISTORY AND PHYSICAL EXAM: Allergies Allergy/AdvReac Type Severity Reaction Status Date / Time morphine Allergy Nausea Verified 01/14/19 10:23 MS Morphine [Morphine] Allergy Nausea Verified 07/22/17 12:42 Home Medications Medication Instructions Recorded Confirmed Type Dabigatran CAP(NF) [Pradaxa 150 mg PO BID 04/19/13 01/14/19 History CAP(NF)] Latanoprost 0.005%* [Xalatan 1 drop BOTH EYES BEDTIME 04/19/13 10/09/15 History 0.005%*] Amiodarone TAB* [Cordarone Tab*] 150 mg PO DAILY 10/09/15 01/14/19 History oxyCODONE/Acetamin 5/325 MG* 1 tab PO Q6H PRN #30 tab MDD 4 10/11/15 01/14/19 Rx [Percocet 5/325 TAB*] HPI: The patient has chronic upper back pain. It was worse yesterday and increased during the night. She had N&V last evening. She had her son call 911 this AM due to her interscapular pain. She could not keep down her oxycodone/APAP last evening and took no meds this AM. She is not nauseous now and is a little hungry. No sx's. C/O dizziness when tries to walk last week or so, many dizzy episodes in past. Family History: Findings - Father had DM Social History: Findings - Lives alone. Son Shaan Limon and daughter Jessika Cortes are her SDM's. 10 children. No alcohol or current tobacco use. 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 Review of Systems - Measurements Intake and Output: Intake and Output Last 24 Hours 01/12/19 01/13/19 01/14/19 01/15/19 06:59 06:59 06:59 06:59 Intake Total 1000 Balance 1000 Weight 240 lb Intake: IV Fluids 1000 Objective Active Medications: Amiodarone HCl (Cordarone Tab*) 150 mg PO DAILY TIGIST Dabigatran (Pradaxa Cap(Nf)) 150 mg PO BID TIGIST Ceftriaxone Sodium 1 gm/ (Sodium Chloride) 50 mls @ 100 mls/hr IVPB Q24H [facility] Latanoprost (Xalatan 0.005%*) 1 drop BOTH EYES BEDTIME TIGIST Oxycodone/Acetaminophen (Percocet 5/325 Tab*) 1 tab PO Q6H PRN PRN Reason: PAIN Vital Signs - 8 hr 01/14/19 01/14/19 01/14/19 08:51 08:55 09:00 Temperature 97.7 F Pulse Rate 101 101 102 Respiratory 20 Rate Blood Pressure 112/67 (mmHg) O2 Sat by Pulse 93 93 95 Oximetry 01/14/19 01/14/19 01/14/19 09:55 10:08 10:18 Temperature Pulse Rate 102 Respiratory 20 Rate Blood Pressure 111/65 108/61 (mmHg) O2 Sat by Pulse 91 97 Oximetry 01/14/19 01/14/19 01/14/19 10:25 10:55 11:46 Temperature Pulse Rate 99 95 Respiratory Rate Blood Pressure 106/69 122/69 108/86 (mmHg) O2 Sat by Pulse 97 Oximetry 01/14/19 01/14/19 01/14/19 12:00 12:25 12:55 Temperature Pulse Rate 94 94 97 Respiratory Rate Blood Pressure 120/66 115/65 (mmHg) O2 Sat by Pulse 98 99 98 Oximetry 01/14/19 13:00 Temperature Pulse Rate 97 Respiratory Rate Blood Pressure (mmHg) O2 Sat by Pulse 98 Oximetry Oxygen Devices in Use Now: None Appearance: Alert, supine on ED stretcher. In good spirits. Looks comfortable. Ears/Nose/Mouth/Throat: Clear Oropharnyx, Mucous Membranes Moist Neck: NL Appearance and Movements; NL JVP, No Thyroid Enlargement, Masses Respiratory: Symmetrical Chest Expansion and Respiratory Effort, Clear to Auscultation, Clear to Percussion Cardiovascular: NL Sounds; No Murmurs; No JVD, RRR, No Edema, - Abdominal: - - No CVA tenderness Extremities: No Edema, No Clubbing, Cyanosis, - Skin: No Rash or Ulcers, No Nodules or Sclerosis, - Neurological: Alert and Oriented x 3, NL Sensation Result Diagrams: 01/14/19 10:30 01/14/19 10:30 Assess/Plan/Problems-Billing Assessment: - Patient Problems (1) UTI (urinary tract infection) Current Visit: No Status: Acute Comment: Received ceftriaxone in ED, will continue 1 gm q 24 hr. Prior E. coli UTI was botello-sensitive. Although she meets sepsis criteria I think she would be best treated with 1 L NS , follow orthostatic signs tid, follow sx's. I am not sure that any of her sx' s are related to sepsis. (2) Atrial fibrillation Current Visit: No Status: Acute Code(s): I48.91 - UNSPECIFIED ATRIAL FIBRILLATION SNOMED Code(s): 82606520 Comment: - Continue Amiodarone and dabigatran. Note hx of CVA. (3) Nephrolithiasis Current Visit: No Status: Acute Code(s): N20.0 - CALCULUS OF KIDNEY SNOMED Code(s): 19610955 Comment: Nonobstructive renal calculi noted on CT 10/14, were also seen in prior CT's. (4) Dizziness Current Visit: Yes Status: Acute Code(s): R42 - DIZZINESS AND GIDDINESS SNOMED Code(s): 049935180 Comment: Orthostatic VS pending. PT eval requested.
[2019-01-14] MEDS ORDERED: NS 0.9% 1000 ML** 1,000 ML IV.FLUID IV ONE (13:40)
[2019-01-14] MEDS: Amiodarone TAB* 200 MG PO SCH (17:08)
[2019-01-14] MEDS: Nystatin TOP POWDER* 15 GM BTL TOPICAL SCH (20:34)
[2019-01-14] MEDS: CMC:Dabigatran CAP(NF) 150 MG CAP PO SCH (20:34)
[2019-01-14] MEDS ORDERED: Latanoprost 0.005%* 2.5 ml BTL BOTH EYES SCH (21:00)
[2019-01-15] MEDS ORDERED: cefTRIAXone(*) 1 GM in NS 0.9% 50 ML* 50 ML IVPB SCH (09:00)
[2019-01-15] MEDS: Amiodarone TAB* 200 MG PO SCH (09:50)
[2019-01-15] MEDS: CMC:Dabigatran CAP(NF) 150 MG CAP PO SCH (09:51)
[2019-01-15] MEDS: Nystatin TOP POWDER* 15 GM BTL TOPICAL SCH (09:51)
[2019-01-15] MEDS ORDERED: oxyCODONE/Acetamin 5/325 MG* TAB PO SCH (10:00)
--- NOTE | 2019-01-15 11:34 | DS ---
AMENDED REPORT NOW INCLUDES DATE OF ADMISSION CC: Dr. [place], [place] * DISCHARGE SUMMARY: DATE OF ADMISSION: 01/14/19 DATE OF DISCHARGE: 01/15/19 HISTORY OF PRESENT ILLNESS/HOSPITAL COURSE: This 83-year-old woman presented because of midthoracic back pain, she has had this for many years on a more or less chronic basis. She takes oxycodone with acetaminophen twice a day schedule for this, but nothing usually in between. She said once she tried taking it just once a day but woke up in the morning with terrible pain. The reason she came to the emergency room for this chronic pain was she was having some nausea, at least 1 emesis, she was a little dizzy as well. She had no lower back pain, flank pain, or symptoms. She was found to have an abnormal urinalysis. She did have a CT scan of the abdomen and pelvis that showed nonobstructing bilateral renal stones. There were no ureteral stones or ureteral dilatation. The patient was aware of these stones from past examinations. She was given ceftriaxone intravenously. She was given a liter of normal saline. We did orthostatic vital signs on her. Blood pressure fell from 112/54 lying to 97/61 standing, heart rate went from 98 to 112. This was before her normal saline. The following morning, she had no more nausea, she had no dizziness. Her intrascapular or midthoracic spine pain was about her usual level. She was pretty much at her baseline and felt well enough to go home. There were no reports from the urine culture yet, probably we will have the sensitivities tomorrow. She will go home on cefuroxime. She will call me tomorrow afternoon to check on the urine culture results. She will follow up with her primary care for her chronic back problems. I note her estimated GFR was 64.4, BUN was 14, creatinine 0.84. Electrolytes were normal. White count was 16.5. As mentioned before, she was afebrile throughout her hospital stay, the highest temperature being 98. FINAL DIAGNOSES: 1. Urinary tract infection. 2. Chronic back pain. 3. History of atrial fibrillation. 4. Nephrolithiasis. DISCHARGE MEDICATIONS: 1. Cefuroxime 500 mg b.i.d. for 5 days. 2. Oxycodone and acetaminophen 5/325 one b.i.d. 3. Latanoprost 0.005% one drop both eyes h.s. 4. Dabigatran 150 mg b.i.d. 5. Amiodarone 150 mg daily. DISPOSITION ON DISCHARGE: Discharged home. CONDITION ON DISCHARGE: Improved. [id number]/[facility] #: [id number] MTDD
[2019-01-15 13:20] VITALS: BP 98/49
== END 2019-01-15 11:45 | disposition home or self-care (01) ==
LOC: ED 08:49 → MED 13:18
PROVIDERS: ADMIT Internal Medicine; ATTEND Internal Medicine
DX: N39.0 Urinary tract infection, site not specified (principal); M54.9 Dorsalgia, unspecified; G89.29 Other chronic pain; I48.91 Unspecified atrial fibrillation; N20.0 Calculus of kidney; R42 Dizziness and giddiness; Z79.01 Long term (current) use of anticoagulants; R73.03 Prediabetes; I10 Essential (primary) hypertension; I73.9 Peripheral vascular disease, unspecified; Z90.49 Acquired absence of other specified parts of digestive tract; I51.7 Cardiomegaly; R94.31 Abnormal electrocardiogram [ECG] [EKG]; Z79.899 Other long term (current) drug therapy; R11.2 Nausea with vomiting, unspecified
CPT/HCPCS: 36415; 71045; 74177; 80053; 81003; 81015; 83605; 83690; 83735; 83880; 84436; 84443; 84484; 85025; 85610; 85730; 87040; 87077; 87086; 87186; 93005; 96361; 96365; 96366; 96375; 99284; A9270-GY; G0378; G8978-GP-CI; G8979-GP-CI; G8980-GP-CI; J0696; J2405; J3010; Q9967